=== PATIENT | male | born 1945 | race Caucasian/White ===

== ENCOUNTER 2016-09-17 04:01 | Observation (INO) | payer MEDICARE ==
[2016-09-17 04:23] LABS: ABSOLUTE NEUTROPHIL COUNT 5.6 K/mm3 (1.8-7.7); BASO # 0.1 K/mm3 (0.0-0.2); BASO % 0.6 % (0.2-1.0); EOS # 0.3 (0.0-0.5); EOS % 3.4 % (0.9-2.9); HEMATOCRIT 39.6 % (32.0-52.0); IMM NEUT% 0.2 % (0-1); LYMPH # 2.1 (1.0-4.8); LYMPH % 24.7 % (15-45); MEAN CORPUSCULAR HEMOGLOBIN 29.5 pg (27.0-31.0); MEAN CORPUSCULAR HGB CONC 32.8 g/dl (33.0-37.0); MEAN PLATELET VOLUME 10.3 fl (7.4-10.4); MONO # 0.5 (0.0-0.8); MONO % 5.3 % (4-12); NEUT % 65.8 % (43-75); PLATELET COUNT 222 K/mm3 (130-400); RED CELL DISTRIBUTION WIDTH 13.7 % (11.5-14.5)
[2016-09-17 04:35] LABS: INR 0.99; PROTHROMBIN TIME 10.4 SECONDS (9.3-11.4)
[2016-09-17] MEDS ORDERED: FAMOTIDINE 10 MG/ML 2ML VIAL ONE (05:27)
[2016-09-17 05:33] LABS: URINE BILIRUBIN NEGATIVE (NEGATIVE); URINE BLOOD NEGATIVE (NEGATIVE); URINE GLUCOSE (UA) NEGATIVE (NEGATIVE); URINE LEUKOCYTE ESTERASE NEGATIVE (NEGATIVE); URINE NITRITE NEGATIVE (NEGATIVE); URINE PROTEIN NEGATIVE (NEGATIVE); URINE UROBILINOGEN NORMAL (0-1 mg/dl)
[2016-09-17 05:34] LABS: URINE APPEARANCE CLEAR; URINE COLOR YELLOW
[2016-09-17 05:41] LABS: ALB/GLOB RATIO 1.4 (>1.0); ALBUMIN 3.7 gm/dL (3.5-5.7); CALCIUM 9.3 mg/dL (8.6-10.3); MAGNESIUM 2.1 mg/dL (1.9-2.7)
[2016-09-17] MEDS ORDERED: REGADENOSON 0.1 MG DOSE IV ONE (06:39)
[2016-09-17] MEDS ORDERED: ASPIRIN CHEWTAB 81 MG TABLET ONE (06:42)
[2016-09-17] MEDS ORDERED: BLISTEX LIPSTICK 1 EACH TP PRN (06:56)
[2016-09-17] MEDS ORDERED: SODIUM CHLORIDE 0.9% 100 ML IV PRN (06:56)
[2016-09-17] MEDS ORDERED: MENTHOL/CETYLPYRD 1 EACH LOZENGE PO PRN (06:56)
[2016-09-17] MEDS ORDERED: MAGNESIUM HYDROXIDE 30 ML UDCUP PO PRN (06:56)
[2016-09-17] MEDS ORDERED: BISACODYL 5 MG TABLET.EC PO PRN (06:56)
[2016-09-17] MEDS ORDERED: BISACODYL 10 MG SUP PR PRN (06:56)
[2016-09-17] MEDS ORDERED: ENOXAPARIN SODIUM 40 MG/0.4 ML SYRINGE SUB-Q SCH (07:00)
[2016-09-17 07:33] VITALS: BMI 25.9
--- NOTE | 2016-09-17 07:47 | RAD ---
09/17/2016 7:42 AM CHEST - 2 VIEWS History: Chest pain. Comparison: 05/04/2015 Findings: Two views of the chest are obtained. The lungs are clear with out effusion or pneumothorax. The cardiomediastinal silhouette is unremarkable.. The osseous structures are intact.. IMPRESSION: No acute intrathoracic process.
[2016-09-17] MEDS ORDERED: AMLODIPINE BESYLATE 5 MG TABLET PO SCH (09:00)
[2016-09-17] MEDS ORDERED: DOCUSATE SODIUM 100 MG CAPSULE PO SCH (09:00)
[2016-09-17] MEDS ORDERED: ASPIRIN (ENTERIC COATED) 81 MG TABLET.EC PO SCH (09:00)
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
[2016-09-17] MEDS ORDERED: IV START KIT ONE (13:14)
--- NOTE | 2016-09-17 18:04 | NUC MED ---
MYOCARDIAL PERFUSION STUDY HISTORY: Chest pain. Family history of heart disease. Pharmacologic stress protocol was utilized. 0.4 mg of Lexiscan was administered as pharmacologic stress. Triplanar orthogonal images were reconstructed from SPECT acquisitions during rest and stress phases, gated SPECT acquisition during stress imaging utilized to assess wall motion and ejection fraction. 36.5 mCi of technetium labeled sestamibi was utilized during stress imaging. 12.3mCi of technetium labeled sestamibi was utilized during rest imaging. Imaging was reconstructed on a dedicated workstation WALL MOTION: Grossly concentric. EJECTION FRACTION: 74%. PERFUSION DEFECTS: No dominant perfusion defect identified on stress or rest imaging. ABNORMAL RIGHT HEART UPTAKE: None identified. LEFT VENTRICULAR CAVITY DILATATION WITH STRESS: Not identified. IMPRESSION: No scintigraphic evidence of focal inducible ischemia or focal infarct. Grossly concentric wall motion, ejection fraction 74%. Findings discussed with Dr. Meza of the hospitalist clinical service on 09/17/2016, 1800 hours.
[2016-09-17 19:49] VITALS: BP 140/70
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
[2016-09-18] MEDS ORDERED: ASPIRIN (ENTERIC COATED) 81 MG TABLET.EC PO SCH (09:00)
== END 2016-09-17 20:20 | disposition home or self-care (01) ==
LOC: ED 04:01 → MS 06:38
PROVIDERS: ADMIT Family Medicine; ATTEND Family Medicine
DX: R07.89 Other chest pain (principal); I10 Essential (primary) hypertension; E78.5 Hyperlipidemia, unspecified; K21.9 Gastro-esophageal reflux disease without esophagitis; I65.29 Occlusion and stenosis of unspecified carotid artery
CPT/HCPCS: 83605; 83690; 85025; 82553; 80053; 83735; 85610; 81003; 84484 ×2; 36415; 71020; 78452; 99285 ×2; 96374; 82962; 93017; 93005; A9270 ×3; J1650; J2785; A9500